=== PATIENT | male | born 1985 | race Caucasian/White ===

== ENCOUNTER 2017-09-11 15:57 | Emergency (ER) | payer OTHER ==
[~2017-09-11] VITALS: Ht 177.8 cm; Wt 88.1 kg
[2017-09-11] MEDS ORDERED: VIGAMOX 0.60 DROP/3 RIGHT EYE (17:36)
[2017-09-11 17:40] VITALS: BP 149/116
== END 2017-09-11 17:42 | disposition home or self-care (01) ==
LOC: EME 15:57
DX: S05.31XA Ocular laceration without prolapse or loss of intraocular tissue, right eye, initial encounter (principal); W22.8XXA Striking against or struck by other objects, initial encounter; Y93.H2 Activity, gardening and landscaping; Y92.007 Garden or yard of unspecified non-institutional (private) residence as the place of occurrence of the external cause; Z87.891 Personal history of nicotine dependence
CPT/HCPCS: 99281; 99283